=== PATIENT | male | born 1965 | race Caucasian/White ===

== ENCOUNTER 2018-01-30 14:12 | Inpatient (IN) | payer OTHER ==
[~2018-01-30] VITALS: Ht 182.9 cm; Wt 70.3 kg
[~2018-01-30 14:12] MED LIST: AMLODIPINE BESYL5 MG PO; ASPIRIN325 MG PO; ASPIRIN81 M1 PO; AUGMENTIN875 MG PO; Aggrenox PO; Azor 10/20 mg PO; CLONIDINE; CLONIDINE HCL0.1 MG PO; CLONIDINE1 EACH TD; FLONASE16 G1 BOTH NARES; FOLIC ACID1 MG PO; Habitrol,Nicoderm CQ TD; LISINOPRIL-HCT1 EAC3 PO; METOPROLOL SUCC25 MG PO; NICODERM CQ1 EAC2 TD; NORVASC; NORVASC10 MG PO; POTABA500 MG PO; PRINZIDE 20-121 EACH PO; PROBIOTIC1 EAC1 PO; Remove Nicotine Patc TD; SERTRALINE HCL50 MG PO; TOPROL XL6.25 MG PO; Topamax PO; VITAMIN B-1100 MG PO
[2018-01-30 14:44] LABS: HEMATOCRIT 38.4 % (38.0-50.0); HEMOGLOBIN 13.9 G/DL (12.5-16.6); MCH 34.9 PG (29.0-34.0); MCHC 36.2 G/DL (30.0-36.0); MCV 96.5 FL (86-99); PLATELET COUNT 194 K/uL (156-360); RBC DIS.WIDTH-CV 12.8 % (11.8-14.6); RBC DIS.WIDTH-SD 46.1 % (39-53); RED BLOOD COUNT 3.98 M/uL (4.00-5.50); WHITE BLOOD COUNT 16.9 K/uL (4.1-10.2)
[2018-01-30 15:01] LABS: CHLORIDE 97 mEq/L (99-109); SODIUM 140 mEq/L (136-147)
[2018-01-30 15:03] LABS: GLUCOSE 106 mg/dL (70-99)
[2018-01-30 15:07] LABS: CREATININE 1.1 mg/dL (0.6-1.3); GFR ESTIMATE (CALCULATED) > 59 mL/min/ (58.99-99999)
[2018-01-30 15:08] LABS: UREA NITROGEN (BUN) 8 mg/dL (9-23)
[2018-01-30 15:11] LABS: POTASSIUM 2.2 mEq/L (3.7-5.4)
[2018-01-30] MEDS ORDERED: SIMVASTATIN10 MG PO (15:46)
[2018-01-30 16:14] LABS: MAGNESIUM 1.9 mg/dL (1.3-2.7)
[2018-01-30 16:16] LABS: TROP-I INTERPRETATION NEGATIVE; TROPONIN-I < 0.01 ng/mL (0.0-0.30)
[2018-01-30 16:51] LABS: APPEARANCE SL.HAZY ((CLEAR)); BILIRUBIN NEGATIVE; BLOOD SMALL; COLOR YELLOW ((YELLOW)); GLUCOSE (STRIP) NEGATIVE; KETONES NEGATIVE; LEUKOCYTES NEGATIVE; NITRITE NEGATIVE; PROTEIN (STRIP) NEGATIVE; SPECIFIC GRAVITY 1.006 (1.000-1.030); UROBILINOGEN 0.2 MG/DL (0.2-1.0)
[2018-01-30 17:00] LABS: BACTERIA RARE /HPF; EPITHELIAL CELLS NONE SEEN /HPF; MUCUS TRACE /LPF; RED BLOOD CELLS 0-5 /HPF (0-5); UCUL ADDED? YES
[2018-01-30 18:00] VITALS: BP 147/98
[2018-01-30 19:01] VITALS: BP 140/88
[2018-01-31 00:01] VITALS: BP 130/80
[2018-01-31 05:16] VITALS: BP 144/86
[2018-01-31 05:52] LABS: ALBUMIN 2.4 G/DL (3.2-4.8); ALKALINE PHOSPHATASE 71 IU/L (3-129); ALT (GPT) 9 IU/L (3-49); AST (GOT) 14 IU/L (2-34); CHLORIDE 108 MEQ/L (99-109); CREATININE 0.9 MG/DL (0.6-1.3); DIRECT BILIRUBIN 0.1 mg/dL (0.0-0.3); GFR ESTIMATE (CALCULATED) > 59 mL/min/ (58.99-99999); GLUCOSE 95 mg/dL (70-99); POTASSIUM 2.5 MEQ/L (3.7-5.4); SODIUM 145 MEQ/L (136-147); TOTAL BILIRUBIN 0.5 MG/DL (0.0-1.0); TOTAL PROTEIN 5.1 G/DL (6.4-8.3); UREA NITROGEN (BUN) 6 mg/dL (9-23)
[2018-01-31 07:20] VITALS: BP 158/90
[2018-01-31 11:40] VITALS: BP 153/95
[2018-01-31 14:37] VITALS: BP 138/95
[2018-01-31 19:28] VITALS: BP 166/97
[2018-02-01] VITALS (7 sets, daily range): BP systolic 127–165; BP diastolic 83–102
[2018-02-01 09:29] LABS: CHLORIDE 102 MEQ/L (99-109); CREATININE 0.7 MG/DL (0.6-1.3); GFR ESTIMATE (CALCULATED) > 59 mL/min/ (58.99-99999); GLUCOSE 98 mg/dL (70-99); SODIUM 142 MEQ/L (136-147); UREA NITROGEN (BUN) 2 mg/dL (9-23)
[2018-02-01 09:30] LABS: POTASSIUM 2.1 MEQ/L (3.7-5.4)
[2018-02-02 00:06] VITALS: BP 158/90
[2018-02-02 03:45] VITALS: BP 155/96
[2018-02-02 06:05] LABS: CREATININE 0.7 MG/DL (0.6-1.3); GFR ESTIMATE (CALCULATED) > 59 mL/min/ (58.99-99999); GLUCOSE 97 mg/dL (70-99); UREA NITROGEN (BUN) 3 mg/dL (9-23)
[2018-02-02 07:32] LABS: CHLORIDE 102 MEQ/L (99-109); SODIUM 143 MEQ/L (136-147)
[2018-02-02 07:33] LABS: POTASSIUM 2.6 MEQ/L (3.7-5.4)
[2018-02-02 09:00] VITALS: BP 155/97
[2018-02-02 12:00] VITALS: BP 140/97
[2018-02-02] MEDS ORDERED: LEVOFLOXACIN750 MG PO (12:44)
[2018-02-02] MEDS ORDERED: NICOTINE PATCH1 EAC1 TD (12:44)
[2018-02-02] MEDS ORDERED: LOPRESSOR25 MG PO (12:45)
[2018-02-02] MEDS ORDERED: Thiamine,Vitamin B1 PO (12:45)
[2018-02-02] MEDS ORDERED: K-DUR20 MEQ PO (12:47)
== END 2018-02-02 14:33 | disposition home or self-care (01) | DRG 195 ==
LOC: EME 14:12 → EDOF 15:41 → 4EAST 15:41 → ENRESERV 15:43 → 4EAST 17:43 → ENRESERV 02-01 16:52 → CANRESERV 02-01 16:52 → 4EAST 02-02 14:33
PROVIDERS: Hospitalist; Nurse Practitioner Family
DX: J15.9 Unspecified bacterial pneumonia (principal); A08.4 Viral intestinal infection, unspecified; E86.0 Dehydration; E87.6 Hypokalemia; F10.10 Alcohol abuse, uncomplicated; I10 Essential (primary) hypertension; R16.0 Hepatomegaly, not elsewhere classified; G43.909 Migraine, unspecified, not intractable, without status migrainosus; K21.9 Gastro-esophageal reflux disease without esophagitis; F32.9 Major depressive disorder, single episode, unspecified; F17.210 Nicotine dependence, cigarettes, uncomplicated; Z79.82 Long term (current) use of aspirin; Z82.3 Family history of stroke; Z82.49 Family history of ischemic heart disease and other diseases of the circulatory system; Z86.73 Personal history of transient ischemic attack (TIA), and cerebral infarction without residual deficits
CPT/HCPCS: 71046; 80048; 80076; 81003; 83605; 83735; 84484; 85027; 87040; 87070; 87086; 87205; 87449; 87502; 87641; 87801; 93005; 93971; 94640; 94640 76; 94760; 99202; 99281; 99285; J0696; J1650; J2405; J3370; J3411; J3480; J7030; J7040; J7050; S0028

== ENCOUNTER 2018-02-03 22:15 | Inpatient (IN) | payer OTHER ==
[~2018-02-03] VITALS: Ht 182.9 cm; Wt 71.3 kg
[~2018-02-03 22:15] MED LIST changes: +K-DUR20 MEQ PO; +LEVOFLOXACIN750 MG PO; +LOPRESSOR25 MG PO; +NICOTINE PATCH1 EAC1 TD; +SIMVASTATIN10 MG PO; +Thiamine,Vitamin B1 PO
[2018-02-03 23:00] LABS: HEMATOCRIT 36.3 % (38.0-50.0); HEMOGLOBIN 12.5 G/DL (12.5-16.6); MCH 33.9 PG (29.0-34.0); MCHC 34.4 G/DL (30.0-36.0); MCV 98.4 FL (86-99); RBC DIS.WIDTH-SD 46.5 % (39-53); RED BLOOD COUNT 3.69 M/uL (4.00-5.50); WHITE BLOOD COUNT 11.9 K/uL (4.1-10.2)
[2018-02-03 23:02] LABS: PLATELET COUNT 276 K/uL (156-360)
[2018-02-03 23:05] LABS: CHLORIDE 104 mEq/L (99-109); POTASSIUM 2.6 mEq/L (3.7-5.4); SODIUM 142 mEq/L (136-147)
[2018-02-03 23:07] LABS: GLUCOSE 89 mg/dL (70-99)
[2018-02-03 23:10] LABS: CREATININE 0.9 mg/dL (0.6-1.3); GFR ESTIMATE (CALCULATED) > 59 mL/min/ (58.99-99999)
[2018-02-03 23:11] LABS: UREA NITROGEN (BUN) 5 mg/dL (9-23)
[2018-02-04 04:17] LABS: TROP-I INTERPRETATION NEGATIVE; TROPONIN-I < 0.01 ng/mL (0.0-0.30)
[2018-02-04 05:08] LABS: INTER. NORMALIZED RATIO 1.7
[2018-02-04 05:11] LABS: PTT 30.8 SEC (25-37)
[2018-02-04 08:46] VITALS: BP 132/94
[2018-02-04 16:50] VITALS: BP 152/98
[2018-02-04 20:08] VITALS: BP 142/90
[2018-02-05] VITALS: BP 150/90
[2018-02-05 04:00] VITALS: BP 152/100
[2018-02-05 07:11] VITALS: BP 138/102
[2018-02-05 09:03] LABS: HEMATOCRIT 34.5 % (38.0-50.0); HEMOGLOBIN 11.6 G/DL (12.5-16.6); MCHC 33.6 G/DL (30.0-36.0); MCV 98.3 FL (86-99); PLATELET COUNT 236 K/uL (156-360); RBC DIS.WIDTH-CV 12.7 % (11.8-14.6); RBC DIS.WIDTH-SD 45.8 % (39-53); RED BLOOD COUNT 3.51 M/uL (4.00-5.50); WHITE BLOOD COUNT 9.7 K/uL (4.1-10.2)
[2018-02-05 09:29] LABS: CHLORIDE 103 MEQ/L (99-109); CREATININE 0.8 MG/DL (0.6-1.3); GFR ESTIMATE (CALCULATED) > 59 mL/min/ (58.99-99999); GLUCOSE 89 mg/dL (70-99); POTASSIUM 3.3 MEQ/L (3.7-5.4); SODIUM 142 MEQ/L (136-147); UREA NITROGEN (BUN) 5 mg/dL (9-23)
[2018-02-05 11:00] VITALS: BP 156/94
[2018-02-05 16:00] VITALS: BP 157/93
[2018-02-05 20:00] VITALS: BP 142/82
[2018-02-06] VITALS: BP 144/82
[2018-02-06 04:00] VITALS: BP 156/92
[2018-02-06 05:31] LABS: HEMATOCRIT 36.4 % (38.0-50.0); HEMOGLOBIN 12.4 G/DL (12.5-16.6); MCH 33.3 PG (29.0-34.0); MCHC 34.1 G/DL (30.0-36.0); MCV 97.8 FL (86-99); PLATELET COUNT 244 K/uL (156-360); RBC DIS.WIDTH-CV 12.6 % (11.8-14.6); RBC DIS.WIDTH-SD 45.4 % (39-53); RED BLOOD COUNT 3.72 M/uL (4.00-5.50); WHITE BLOOD COUNT 7.9 K/uL (4.1-10.2)
[2018-02-06 07:03] VITALS: BP 168/110
[2018-02-06 09:04] LABS: TYPE OF FLUID THORACENTESIS
[2018-02-06 09:06] LABS: GLUCOSE 96 mg/dL (70-99); LACTATE DEHYDROGENASE 224 IU/L (20-246)
[2018-02-06 09:07] LABS: TOTAL PROTEIN 6.4 G/DL (6.4-8.3)
[2018-02-06 09:23] LABS: APPEARANCE CLOUDY-BLOODY; BODY FLUID RBC'S 33000 /MM^3 (0-100); BODY FLUID WBC'S 7231 /MM^3 (0-500)
[2018-02-06 09:45] LABS: BODY FLUID GLUCOSE 77 MG/DL; BODY FLUID LDH 302 IU/L; BODY FLUID PROTEIN 3.8 G/DL
[2018-02-06 10:06] LABS: BODY FLUID EOSINOPHILS 37 % (0-25); COMMENT MANY MESOTHELIAL CELLS SEEN; MONONUCLEAR WBC'S 20 %; POLYNUCLEAR WBC'S 43 % (0-25)
[2018-02-06 11:07] VITALS: BP 158/102
[2018-02-06 11:08] LABS: INTER. NORMALIZED RATIO 1.4
[2018-02-06 11:10] LABS: PTT 31.8 SEC (25-37)
[2018-02-06 16:00] VITALS: BP 135/93
[2018-02-06 17:33] LABS: INTER. NORMALIZED RATIO 1.3
[2018-02-06 17:51] LABS: PTT 49.5 SEC (25-37)
[2018-02-06 20:00] VITALS: BP 139/96
[2018-02-06 22:50] LABS: INTER. NORMALIZED RATIO 1.4
[2018-02-06 22:53] LABS: PTT 57.4 SEC (25-37)
[2018-02-07] VITALS (7 sets, daily range): BP systolic 130–170; BP diastolic 89–109
[2018-02-07 06:00] LABS: HEMATOCRIT 36.6 % (38.0-50.0); HEMOGLOBIN 12.5 G/DL (12.5-16.6); MCH 33.2 PG (29.0-34.0); MCHC 34.2 G/DL (30.0-36.0); MCV 97.1 FL (86-99); PLATELET COUNT 239 K/uL (156-360); RBC DIS.WIDTH-CV 12.8 % (11.8-14.6); RBC DIS.WIDTH-SD 45.5 % (39-53); RED BLOOD COUNT 3.77 M/uL (4.00-5.50)
[2018-02-07 06:08] LABS: PTT 62.3 SEC (25-37)
[2018-02-07 06:24] LABS: CHLORIDE 103 MEQ/L (99-109); CREATININE 0.8 MG/DL (0.6-1.3); GFR ESTIMATE (CALCULATED) > 59 mL/min/ (58.99-99999); GLUCOSE 90 mg/dL (70-99); POTASSIUM 2.8 MEQ/L (3.7-5.4); SODIUM 142 MEQ/L (136-147); UREA NITROGEN (BUN) 8 mg/dL (9-23)
[2018-02-07 11:39] LABS: INTER. NORMALIZED RATIO 1.4
[2018-02-07 12:45] LABS: MAGNESIUM 1.8 mg/dl (1.3-2.7)
[2018-02-08 04:00] VITALS: BP 152/90
[2018-02-08 06:23] LABS: HEMATOCRIT 36.6 % (38.0-50.0); HEMOGLOBIN 11.8 G/DL (12.5-16.6); MCH 32.4 PG (29.0-34.0); MCHC 32.2 G/DL (30.0-36.0); MCV 100.5 FL (86-99); PLATELET COUNT 223 K/uL (156-360); RBC DIS.WIDTH-CV 12.8 % (11.8-14.6); RED BLOOD COUNT 3.64 M/uL (4.00-5.50); WHITE BLOOD COUNT 9.2 K/uL (4.1-10.2)
[2018-02-08 06:24] LABS: INTER. NORMALIZED RATIO 1.2
[2018-02-08 06:27] LABS: PTT 71.9 SEC (25-37)
[2018-02-08 06:47] LABS: CHLORIDE 111 MEQ/L (99-109); CREATININE 0.8 MG/DL (0.6-1.3); GFR ESTIMATE (CALCULATED) > 59 mL/min/ (58.99-99999); GLUCOSE 87 mg/dL (70-99); MAGNESIUM 1.9 mg/dl (1.3-2.7); SODIUM 144 MEQ/L (136-147); UREA NITROGEN (BUN) 7 mg/dL (9-23)
[2018-02-08 06:49] LABS: POTASSIUM 3.4 MEQ/L (3.7-5.4)
[2018-02-08 06:56] VITALS: BP 160/84
[2018-02-08 11:02] VITALS: BP 153/86
[2018-02-08] MEDS ORDERED: COUMADIN5 MG PO (11:43)
[2018-02-08] MEDS ORDERED: APRESOLINE25 MG PO (11:43)
[2018-02-08] MEDS ORDERED: LOVENOX80 MG/0.8 SC (11:43)
[2018-02-08] MEDS ORDERED: LO-DOSE ASPIRIN81 M2 PO (13:28)
== END 2018-02-08 14:28 | disposition home or self-care (01) | DRG 175 ==
LOC: EME 22:15 → 5SOUTH 02-04 06:33 → EDOF 02-04 06:33 → ENRESERV 02-04 06:34 → 5SOUTH 02-04 08:30 → ENPENDDIS 02-08 12:02 → 5SOUTH 02-08 14:28
PROVIDERS: Emergency Medicine; Hospitalist; Internal Medicine; Internal Medicine Pulmonary Disease
DX: I26.99 Other pulmonary embolism without acute cor pulmonale (principal); J18.9 Pneumonia, unspecified organism; J98.11 Atelectasis; J90 Pleural effusion, not elsewhere classified; Y95 Nosocomial condition; K21.9 Gastro-esophageal reflux disease without esophagitis; I10 Essential (primary) hypertension; E87.6 Hypokalemia; F17.210 Nicotine dependence, cigarettes, uncomplicated; F10.10 Alcohol abuse, uncomplicated; Z86.73 Personal history of transient ischemic attack (TIA), and cerebral infarction without residual deficits; Z90.49 Acquired absence of other specified parts of digestive tract; Z87.01 Personal history of pneumonia (recurrent); Z88.0 Allergy status to penicillin; Z88.5 Allergy status to narcotic agent; Z79.82 Long term (current) use of aspirin; Z82.3 Family history of stroke; Z82.49 Family history of ischemic heart disease and other diseases of the circulatory system
CPT/HCPCS: 71045; 71046; 71275; 76942; 80048; 82945; 82947; 83605; 83615; 83615 91; 83735; 84132; 84155; 84157; 84484; 85027; 85379; 85610; 85730; 87040; 87070; 87075; 87116; 87205; 87206; 88108; 88305; 89051; 93005; 93306; 93970; 94799; 99281; 99284; J0692; J1650; J1956; J2270; J2405; J3370; J3480; J7030; J7040